=== PATIENT | female | born 1975 | race Caucasian/White ===

== ENCOUNTER 2016-12-26 15:41 | Inpatient (IN) | payer BC ==
[2016-12-26 16:24] LABS: #Eosinphils 0.1 thou/uL (0.0-0.7); #Lymphocytes 2.9 thou/uL (1.20-3.40); #Monocytes 0.7 thou/uL (0.11-0.59); #Neutrophils 6.4 thou/uL (1.40-6.50); %Basophils 0.1 % (0.0-1.0); %Eosinophils 1.1 % (0.0-10.0); %Lymphocytes 28.7 % (21.0-51.0); %Monocytes 6.6 % (0.0-10.0); Hematocrit 38.4 % (36.0-47.0); Mean Platelet Volume 8.5 fL (7.4-10.4); White Blood Cell (WBC) Count 10.1 thou/uL (4.8-10.8)
[2016-12-26 16:46] LABS: ALT (SGPT) 20 U/L (8-55); AST (SGOT) 20 U/L (5-34); Alkaline Phosphatase 90 U/L (40-150); Anion Gap 14 mmol/L (10-20); BUN (Urea Nitrogen) 16 mg/dL (7.0-18.7); Bilirubin, Total 0.2 mg/dL (0.2-1.2); Calc. Creatinine Clearance 0 mL/min (70-130); Carbon Dioxide 22 mmol/L (22-29); Chloride 105 mmol/L (98-107); Estimated GFR-MDRD Greater than 90; Globulin 3.3 g/dL (2.4-3.5); Protein, Total 6.3 g/dL (6.0-8.3)
[2016-12-26] MEDS ORDERED: Acetaminophen 500 MG TAB PO PRN (16:46)
[2016-12-26] MEDS ORDERED: Promethazine HCl 25 MG/ML VIAL IM PRN ×2 (16:46→21:54)
[2016-12-26] MEDS ORDERED: Diphenoxylate HCl/Atropine Tablet PO PRN ×2 (16:46→19:15)
[2016-12-26] MEDS ORDERED: Ondansetron HCl/PF 4 MG/2 ML Vial IVP PRN ×3 (16:46→21:54)
[2016-12-26] MEDS ORDERED: LR / Pitocin 40 units/1000 ml 1,000 ML IV PRN (16:46)
[2016-12-26] MEDS ORDERED: Calcium Gluc 4.6 MEQ/10 ML (100 MG/ML) SLOW IVP PRN (16:46)
[2016-12-26] MEDS: Lactated Ringer's 1,000 ML IV SCH (17:00)
[2016-12-26 17:27] LABS: Hematocrit 37.6 % (36.0-47.0); White Blood Cell (WBC) Count 9.4 thou/uL (4.8-10.8)
[2016-12-26] MEDS: Labetalol HCl 100 MG/20 ML VIAL SLOW IVP PRN ×4 (17:30→20:00)
[2016-12-26 18:59] VITALS: BMI 46.2
[2016-12-26] MEDS ORDERED: Penicillin G Potassium 5 MILL.UNITS in Sodium Chloride 0.9% 100 ML IVPB SCH (19:00)
[2016-12-26] MEDS ORDERED: NIFEdipine 10 MG CAP PO SCH (19:00)
[2016-12-26] MEDS ORDERED: Dextrose 50% Abboject 50 ML SYRINGE IVP PRN (19:09)
[2016-12-26] MEDS ORDERED: Dextrose 5% in Water 1,000 ML IV PRN (19:09)
[2016-12-26] MEDS ORDERED: HYDROcodone/Acetaminophen 5/325 mg Tablet PO PRN ×2 (19:15)
[2016-12-26] MEDS ORDERED: Misoprostol 200 MCG TAB PR PRN (19:15)
[2016-12-26] MEDS ORDERED: Magnesium Sulfate 20 GM/WATER 500 ML BAG IVPB SCH (19:15)
[2016-12-26] MEDS ORDERED: Carboprost 250 MCG/ML AMP IM PRN (19:15)
[2016-12-26] MEDS ORDERED: Lidocaine 1% (PF) 30 ML VIAL SC PRN (19:15)
--- NOTE | 2016-12-26 19:20 | PDOC.LDHP ---
Labor and Delivery H&P Chief complaint: other (Elevated BPs) HPI: 41 y/o at 37w0d sent from clinic by Dr. Lundy for elevated BPs. Has chronic HTN that has been controlled on aldomet and labetalol but had severe range BPs in clinic today. Denies ALARCON, vision changes, RUQ pain, VB, LOF, ctx, or decreased FM. ROS neg for HEENT, cv, pulm, gi, gu, neuro, psych, skin, musculoskeletal or constitutional symptoms other than mentioned above. OB History Details: 2 prior SABs Current complications: pregestational diabetes, hypertension Past Medical History: CHTN, T2DM Previous surgical history: none Allergies/Adverse Reactions: Allergies Allergy/AdvReac Type Severity Reaction Status Date / Time No Known Allergies Allergy Unverified 12/26/16 18:49 Social history: none - Physical Exam Abnormal vital signs: Severe range BPs, persistent General: NAD, resting Heart: RRR Lungs: CTAB Abdomen: gravid Extremeties: pitting edema FHT: category 1 Robins contractions every: 6-8 mins - Vaginal Exam cm dilated: 0 Effacement: 0% Station: -3 - Assessment L&D Assessment: medically indicated induction - Plan Plan: admit to L&D, cervical ripening, GBS antibiotic prophylaxis, informed consent obtained, magnesium for seizure prophylaxis, anesthesia consult for pain management -: Given 1 dose Nifedipin 10mg PO in triage. Labetalol and hydralazine ordered prn for BP control. SSI ordered with q2 hour accuchecks.
[2016-12-26] MEDS: Magnesium Sulfate 20 gm/500 ml 20 GM/500 ML BAG IVPB SCH (20:07)
--- NOTE | 2016-12-26 21:39 | PDOC.LDPN ---
Labor & Delivery Progress Note - Subjective Subjective: comfortable - Objective Abnormal vital signs: Persistent severe range BPs General: NAD, resting Uterine fundus: non tender Dilation: 0 Effacement: 0% Station: -3 FHT: category 1 - Assessment (1) Severe hypertension affecting in third trimester Code(s): O16.3 - UNSPECIFIED MATERNAL HYPERTENSION, THIRD TRIMESTER Current Visit: Yes Status: Acute -: Patient with persistent severe range BPs despite treatment with multiple agents remote from delivery. Because of this, I feel it is best to proceed with delivery. I discussed this with the patient and the plan is to proceed with primary LTCS.
[2016-12-26] MEDS ORDERED: Oxytocin 10 UNITS/ML VIAL ONE (21:45)
[2016-12-26] MEDS ORDERED: Ondansetron HCl/PF 4 MG/2 ML Vial ONE (21:45)
[2016-12-26] MEDS ORDERED: ePHEDrine/0.9% NaCl/PF SYRINGE 50 mg/10 ml ONE (21:45)
[2016-12-26] MEDS ORDERED: Fentanyl 100 MCG/2 ML VIAL ONE (21:46)
[2016-12-26] MEDS ORDERED: Naloxone HCl 0.4 mg/ml Vial IV PRN (21:54)
[2016-12-26] MEDS ORDERED: HYDROmorphone 2 MG/ML VIAL SLOW IVP PRN (21:54)
[2016-12-26] MEDS ORDERED: Naloxone HCl 0.4 mg/ml Vial IVP PRN ×2 (21:54)
[2016-12-26] MEDS ORDERED: diphenhydrAMINE HCl 50 MG/ML 1 ML VIAL IVP PRN (21:54)
[2016-12-26] MEDS ORDERED: Meperidine HCl/PF 25 MG/ML VIAL SLOW IVP PRN (21:54)
[2016-12-26] MEDS ORDERED: Ketorolac Tromethamine 30 MG/ML VIAL IVP PRN (21:54)
[2016-12-26] MEDS ORDERED: Promethazine HCl 25 MG SUPP PR PRN (21:54)
[2016-12-26] MEDS ORDERED: Eucerin (Mineral Oil/Petrolatum,White) 30 gm Jar TOP PRN (21:54)
[2016-12-26] MEDS ORDERED: Communication Order-Pharmacy FS SCH (22:00)
[2016-12-26] MEDS ORDERED: Bicitra 30 ML UDCUP PO SCH (22:00)
[2016-12-26] MEDS ORDERED: Ketorolac Tromethamine 30 MG/ML VIAL IVP SCH (22:00)
[2016-12-26] MEDS ORDERED: Ketorolac Tromethamine 30 MG/ML VIAL ONE (22:39)
[2016-12-26] MEDS ORDERED: Simethicone Chewable 80 MG TAB PO PRN (23:15)
[2016-12-26] MEDS ORDERED: Lanolin Ointment 7 GM TUBE TOP PRN (23:15)
[2016-12-26] MEDS ORDERED: Varicella virus, LIVE 0.5 ML VIAL SC ONE (23:15)
[2016-12-26] MEDS ORDERED: Adacel (T-DAP) 0.5 ML VIAL IM ONE (23:15)
[2016-12-26] MEDS ORDERED: LR w/ Pitocin 40 units/1000 ML BAG IV SCH (23:15)
[2016-12-26] MEDS ORDERED: Measles/Mumps/Rubella 10 MCG/0.5 ML VIAL SC ONE (23:15)
--- NOTE | 2016-12-26 23:43 | PDOC.OPDEL ---
OB Operative/Delivery Note Delivery Dr/Surgeon: Eliazbeth Small MD Assist: Luca Mcgill Pre-Delivery Diagnosis: other (Severe blood pressures uncontrolled, remote from delivery) Weeks gestation: 37 Anesthesia: spinal - Findings A Sex: female ("Roberto") Weight: 6 lb 12.256 oz - 5 min: 8 - 10 min: 9 - Additional Findings/Plan Placenta delivered: spontaneous findings: low transverse hysterotomy without extension Estimated blood loss: 800 Post delivery plan: recovery in LICU
--- NOTE | 2016-12-26 23:57 | OP ---
DATE OF PROCEDURE: 12/26/2016 PREOPERATIVE DIAGNOSES: 1. Uncontrolled chronic hypertension with superimposed severe induced hypertension, remote from delivery. 2. A 37-week intrauterine . 3. Type 2 Diabetes Mellitus POSTPROCEDURE DIAGNOSES: 1. Uncontrolled chronic hypertension with superimposed severe induced hypertension, remote from delivery. 2. A 37-week intrauterine . 3. Type 2 Diabetes Mellitus PROCEDURE PERFORMED: Primary low transverse . SURGEON: Elizabeth Small M.D. [employer]VE[employer]MENT B[employer]ING ASSOCIATE: Luca Mcgill, [employer] Worker. ANESTHESIA: Spinal. COMPLICATIONS: None. ESTIMATED BLOOD LOSS: 800 mL INDICATIONS: The patient was admitted for persistent severe range blood pressures at term. Her blood pressures could not be controlled with multiple antihypertensive agents and was remote from delivery. The decision was made to proceed with primary for blood pressure control. FINDINGS: Normal uterus, tubes, ovaries. The uterus had a small 1 cm subserosal fibroid vigorous female in cephalic presentation. Apgars 8 and 9, weight 6 pounds, 12 ounces. DESCRIPTION OF PROCEDURE: The patient was taken to the operating room where spinal anesthesia was obtained without difficulty. She was prepared and draped in normal sterile fashion in the dorsal supine position with a leftward tilt. A Pfannenstiel skin incision was made with scalpel and carried down to the underlying layer of fascia. The fascia was incised in the midline and extended laterally with Dominguez scissors. The fascia was tented off the rectus muscles with Amadeo clamps and the rectus muscles were dissected off sharply. The rectus muscles were in the midline and the peritoneum was entered sharply and extended laterally. An Thony O retractor was placed in the abdomen and the lower uterine segment was incised in a transverse fashion with the scalpel. The incision was extended in a cephalocaudal direction and the infant's head was delivered atraumatically. The nose and mouth were suctioned with bulb suction and the cord was clamped and cut. The infant was handed off to the waiting NICU team. The placenta was delivered manually and uterus was cleared of all clots and debris. Uterine incision was repaired in a running locked fashion with a #1 Monocryl in two layers with good hemostasis. The abdomen was irrigated and the Thony retractor was removed. The fascia was repaired in a running fashion with 0 PDS. The subcuticular tissue was reapproximated with plain gut and the skin was sewn with 4-0 Monocryl. Patient tolerated the procedure well. Sponge, lap, and needle counts were correct x2. The patient was taken to recovery room in stable condition. KEITH
[2016-12-27] MEDS: Misoprostol 100 MCG TAB VAG SCH ×6 (00:08→20:54)
[2016-12-27] MEDS: Penicillin G 2.5 MILL.units 2.5 MILL.UNITS in Premix Bag 1 BAG IVPB SCH ×5 (00:08→19:03)
[2016-12-27] MEDS: Labetalol HCl 100 MG/20 ML VIAL SLOW IVP PRN ×6 (00:42→19:40)
[2016-12-27] MEDS: Lactated Ringer's 1,000 ML IV SCH ×3 (03:05→19:46)
[2016-12-27] MEDS: Magnesium Sulfate 20 gm/500 ml 20 GM/500 ML BAG IVPB SCH ×2 (04:37→14:50)
[2016-12-27 04:55] LABS: Hematocrit 38.1 % (36.0-47.0); Mean Platelet Volume 8.5 fL (7.4-10.4); Red Blood Cell (RBC) Count 4.33 mill/uL (4.20-5.40); White Blood Cell (WBC) Count 14.3 thou/uL (4.8-10.8)
[2016-12-27] MEDS: D5 LR 500 ML IV SCH ×2 (06:45→15:40)
--- NOTE | 2016-12-27 07:17 | PDOC.PP ---
Post Progress Note Post Day #: 1 -: Doing well. Not yet ambulated. Low BS overnight. PO intake tolerated: yes (clear liquids) Ambulation: no Vital Signs (12 hours) Temp Pulse Resp BP BP 12/27/16 03:06 85 163/77 H 12/27/16 01:21 85 163/77 H 12/27/16 00:42 94 12/26/16 23:15 97.9 F 94 18 159/76 H 12/26/16 21:27 99 12/26/16 20:17 99 12/26/16 20:00 99 12/26/16 19:38 99 12/26/16 19:33 98.6 F 99 18 12/26/16 19:20 90 Weight Weight 278 lb - Physical Examination General: NAD Abdominal: lochia (normal), no distention, appropriately TTP Fundus firm & at: U-3 Skin: no rash Neurological: no gross focal deficits Psychiatric: A&Ox3 Result Diagrams: 12/27/16 04:40 12/26/16 16:14 Additional Labs: Post Labs Blood Type A POSITIVE 12/26/16 17:00 Hep Bs Antigen Non-Reactive S/CO (NonReactive) 12/26/16 17:00 Accuchecks 12/27/16 12/27/16 12/27/16 06:39 04:40 02:06 POC Glucose 49 L* 54 L* 73 12/26/16 12/26/16 12/26/16 23:59 21:31 19:43 POC Glucose 86 69 L 59 L* 12/26/16 18:19 POC Glucose 82 (1) Severe hypertension affecting in third trimester Code(s): O16.3 - UNSPECIFIED MATERNAL HYPERTENSION, THIRD TRIMESTER Status: Acute (2) delivery due to maternal disorder, delivered, curr hospitaliz Code(s): O99.89 - OTH DISEASES AND CONDITIONS COMPL PREG/CHLDBRTH; O82 - ENCOUNTER FOR DELIVERY WITHOUT INDICATION Status: Acute (3) Type 2 diabetes mellitus Status: Chronic - Assessment/Plan Doing well PPD 1. Since she has had minimal CLD (but tolerating so far), I started D5LR for low BS until she is tolerating more PO. Will continue to monitor. BPs have improved since delivery. Continue magnesium. Will restart home BP medications.
[2016-12-27] MEDS ORDERED: Insulin Detemir 100 UNITS/ML 45 UNITS in Pre-Filled Syringe 1 EACH SC SCH (09:00)
[2016-12-27] MEDS: Labetalol HCl 100 MG TAB PO SCH ×2 (10:25→20:37)
[2016-12-27] MEDS: Ferrous Sulfate 325 MG TAB PO SCH (10:34)
[2016-12-27] MEDS: Docusate (Surfak) 240 MG CAP PO SCH ×2 (10:34→20:36)
[2016-12-27] MEDS ORDERED: Ketorolac Tromethamine 30 MG/ML VIAL ONE (13:04)
[2016-12-27] MEDS: TOUJEO SC SCH (20:49)
[2016-12-27] MEDS ORDERED: HYDROcodone/Acetaminophen 5/325 mg Tablet PO PRN (23:59)
[2016-12-28] MEDS: HYDROcodone/Acetaminophen 5/325 mg Tablet PO PRN ×2 (00:07→09:12)
[2016-12-28] MEDS: Labetalol HCl 100 MG/20 ML VIAL SLOW IVP PRN ×4 (07:55→19:24)
[2016-12-28] MEDS ORDERED: Furosemide 40 MG/4 ML VIAL SLOW IVP SCH (08:45)
[2016-12-28] MEDS ORDERED: TOUJEO SC SCH (09:00)
[2016-12-28] MEDS: NIFEdipine XL 60 MG TAB PO SCH (09:11)
[2016-12-28] MEDS: TOUJEO SC SCH ×2 (09:13→21:15)
[2016-12-28] MEDS: Docusate (Surfak) 240 MG CAP PO SCH ×2 (09:13→21:13)
[2016-12-28] MEDS: Ferrous Sulfate 325 MG TAB PO SCH (09:13)
--- NOTE | 2016-12-28 12:29 | PRG ---
DATE OF SERVICE: 12/28/2016 SUBJECTIVE: Patient is a 41-year-old female now postoperative day #2, status post a primary C-secti on for chronic hypertension and superimposed preeclampsia with difficult to control severe range blo od pressures. The patient has been off magnesium since about 10:00 last night. She has required mu ltiple IV medications in the last 24 hours and most recently has required medication as early as thi s morning. The patient has been on labetalol 200 mg twice a day and methyldopa 500 mg after review of the blood pressures the last 24 hours with blood pressures as high as 200 systolic and 90s diasto lic. I have opted to rearrange her medications by discontinuing her methyldopa and her labetalol p. o. and starting her on Procardia-XL 60 mg. I have also given her dose of 40 mg of Lasix this mornin g and she has received 2 doses of IV hydralazine 10 mg each. I verified her blood pressures with an upper arm cuff, wrapping at least about one half times around her arm. This blood pressure cuff de monstrated pressures in the 160s to 170s. REVIEW OF SYSTEMS: Patient denies headaches. She denies any chest pain. She denies any vision oracio nges. PHYSICAL EXAMINATION: VITAL SIGNS: Blood pressure currently is 175/75, pulse of 110, temperature 99.0, respiratory rate 2 0. GENERAL: She appears to be in no acute distress. She is alert and oriented, and cooperative and pl easant to interact with. HEENT: Normocephalic, atraumatic. ABDOMEN: Obese and difficult to assess. Her incision is clean, dry, and intact with eric. EXTREMITIES: No induration or erythema. LABORATORY DATA: Blood sugars fasting this morning is 68, a postprandial blood sugar yesterday was 143. ASSESSMENT AND PLAN: The patient is a 41-year-old female with insulin-dependent diabetes and chroni c hypertension, postop day 2 status post a primary for uncontrolled blood pressures. She is status post magnesium. Blood pressures continue to be in the severe range. We have made some ch anges to her medications and hopefully will have a positive affect. In the meantime, we will contin ue to treat with IV hydralazine and IV labetalol as needed to bring her pressures down. If this is unsuccessful, we will need to consider placing the patient on a drip in the ICU.
[2016-12-28] MEDS: Labetalol HCl 100 MG TAB PO SCH (21:13)
[2016-12-28] MEDS: Insulin Regular 300 UNITS/3 ML VIAL SC PRN (22:12)
--- NOTE | 2016-12-29 08:41 | PDOC.PP ---
Post Progress Note Post Day #: 3 -: Feels better today. No IV anti-HTN overnight. Denies preE sx. Breast feedin PO intake tolerated: yes Flatus: no Ambulation: yes Vital Signs (12 hours) Temp Pulse Resp BP 12/29/16 08:00 98.4 F 106 H 20 12/29/16 04:00 98.2 F 110 H 22 H 12/29/16 00:00 98.2 F 110 H 22 H 12/28/16 21:13 121 H 167/81 H Weight Weight 278 lb - Physical Examination General: NAD Cardiovascular: RRR Respiratory: clear to ausculation bilateral Abdominal: no distention, appropriately TTP Deviation from normal: incision c/d/i with dermabond Fundus firm & at: below umbilicus Extremities: negative homans (B) (2-3+ edema, DTRs 2+) Skin: no rash Neurological: no gross focal deficits Psychiatric: normal affect Result Diagrams: 12/27/16 04:40 12/26/16 16:14 Additional Labs: Post Labs Blood Type A POSITIVE 12/26/16 17:00 Hep Bs Antigen Non-Reactive S/CO (NonReactive) 12/26/16 17:00 (1) delivery due to maternal disorder, delivered, curr hospitaliz Code(s): O99.89 - OTH DISEASES AND CONDITIONS COMPL PREG/CHLDBRTH; O82 - ENCOUNTER FOR DELIVERY WITHOUT INDICATION Status: Acute (2) Severe hypertension affecting in third trimester Code(s): O16.3 - UNSPECIFIED MATERNAL HYPERTENSION, THIRD TRIMESTER Status: Acute (3) Type 2 diabetes mellitus Status: Chronic - Assessment/Plan HTN has been improved overnight with PO labetalol and procardia regimen. She did not require additional IV anti-HTN meds. UOP good and labs stable. BG has been controlled with Troujeo 20 units BID and PRN humalog. Plan to transfer to PP floor this AM and need to monitor to assure normal - mild range BPs > 24 hours with PO meds.
[2016-12-29] MEDS: NIFEdipine XL 60 MG TAB PO SCH (08:44)
[2016-12-29] MEDS: Labetalol HCl 100 MG TAB PO SCH ×2 (08:45→21:38)
[2016-12-29] MEDS: Docusate (Surfak) 240 MG CAP PO SCH ×2 (08:45→21:38)
[2016-12-29] MEDS: TOUJEO SC SCH ×3 (08:45→21:47)
[2016-12-29] MEDS ORDERED: Acetaminophen 325 MG TAB PO PRN (10:05)
[2016-12-29] MEDS ORDERED: diphenhydrAMINE HCl 25 MG CAP PO PRN (10:05)
[2016-12-29] MEDS ORDERED: Labetalol HCl 100 MG/20 ML VIAL SLOW IVP PRN (10:05)
[2016-12-29] MEDS ORDERED: Prenatal Vitamin 1 TAB PO SCH (10:15)
[2016-12-29] MEDS ORDERED: Enoxaparin Sodium 40 MG/0.4 ML SYRINGE SC SCH (10:15)
[2016-12-29] MEDS: Penicillin G 2.5 MILL.units 2.5 MILL.UNITS in Premix Bag 1 BAG IVPB SCH ×2 (11:12→11:13)
[2016-12-29] MEDS: D5 LR 500 ML IV SCH (11:13)
[2016-12-29] MEDS: Misoprostol 100 MCG TAB VAG SCH (11:14)
[2016-12-29] MEDS: Lactated Ringer's 1,000 ML IV SCH (11:14)
[2016-12-29] MEDS: Ferrous Sulfate 325 MG TAB PO SCH (11:14)
[2016-12-29] MEDS: Ibuprofen 800 MG TAB PO SCH ×2 (13:49→22:53)
[2016-12-29] MEDS: Insulin Regular 300 UNITS/3 ML VIAL SC PRN (17:41)
[2016-12-30 05:47] LABS: #Eosinphils 0.4 thou/uL (0.0-0.7); #Lymphocytes 2.1 thou/uL (1.20-3.40); #Monocytes 0.7 thou/uL (0.11-0.59); #Neutrophils 4.6 thou/uL (1.40-6.50); %Basophils 0.5 % (0.0-1.0); %Eosinophils 5.4 % (0.0-10.0); %Monocytes 8.9 % (0.0-10.0); Hematocrit 38.8 % (36.0-47.0); Mean Platelet Volume 8.2 fL (7.4-10.4); Red Blood Cell (RBC) Count 4.33 mill/uL (4.20-5.40); White Blood Cell (WBC) Count 7.9 thou/uL (4.8-10.8)
[2016-12-30 06:07] LABS: ALT (SGPT) 34 U/L (8-55); AST (SGOT) 30 U/L (5-34); Alkaline Phosphatase 64 U/L (40-150); Anion Gap 13 mmol/L (10-20); BUN (Urea Nitrogen) 10 mg/dL (7.0-18.7); Bilirubin, Total 0.4 mg/dL (0.2-1.2); Calc. Creatinine Clearance 252 mL/min (70-130); Calcium 8.4 mg/dL (7.8-10.44); Carbon Dioxide 23 mmol/L (22-29); Chloride 105 mmol/L (98-107); Estimated GFR-MDRD Greater than 90; Globulin 3.2 g/dL (2.4-3.5); Protein, Total 6.1 g/dL (6.0-8.3)
[2016-12-30] MEDS: Ibuprofen 800 MG TAB PO SCH ×2 (06:32→14:15)
[2016-12-30] MEDS: NIFEdipine XL 60 MG TAB PO SCH (08:24)
[2016-12-30] MEDS: Labetalol HCl 100 MG TAB PO SCH (08:24)
[2016-12-30] MEDS: Docusate (Surfak) 240 MG CAP PO SCH (08:25)
[2016-12-30] MEDS: TOUJEO SC SCH (08:26)
[2016-12-30] MEDS ORDERED: Prenatal Vitamin 1 TAB PO SCH (09:00)
[2016-12-30] MEDS ORDERED: Enoxaparin Sodium 40 MG/0.4 ML SYRINGE SC SCH (09:00)
[2016-12-30] MEDS ORDERED: Labetalol HCl 100 MG TAB PO SCH ×2 (09:45→21:00)
[2016-12-30 12:14] VITALS: BP 141/69; TEMP 98.5
--- NOTE | 2016-12-30 13:02 | PDOC.PP ---
Post Progress Note Post Day #: 4 -: Doing well. No IV meds needed. BG contolled and BP improved with regimen. PO intake tolerated: yes Flatus: yes Ambulation: yes Vital Signs (12 hours) Temp Pulse Resp BP 12/30/16 12:13 98.5 F 91 18 141/69 H 12/30/16 10:01 101 H 12/30/16 08:24 101 H 12/30/16 08:00 98.2 F 101 H 18 12/30/16 03:46 101 H 148/70 H Weight Weight 278 lb - Physical Examination General: NAD Cardiovascular: no m/r/g, RRR Respiratory: clear to ausculation bilateral Abdominal: no distention, appropriately TTP Deviation from normal: incision c/d/i with dermabond, bruising noted along incision Fundus firm & at: below umbilius Extremities: negative homans (B) Skin: no rash Neurological: no gross focal deficits Psychiatric: A&Ox3 Result Diagrams: 12/30/16 05:24 12/30/16 05:24 Additional Labs: Post Labs Blood Type A POSITIVE 12/26/16 17:00 Hep Bs Antigen Non-Reactive S/CO (NonReactive) 12/26/16 17:00 (1) delivery due to maternal disorder, delivered, curr hospitaliz Code(s): O99.89 - OTH DISEASES AND CONDITIONS COMPL PREG/CHLDBRTH; O82 - ENCOUNTER FOR DELIVERY WITHOUT INDICATION Status: Acute (2) Severe hypertension affecting in third trimester Code(s): O16.3 - UNSPECIFIED MATERNAL HYPERTENSION, THIRD TRIMESTER Status: Acute (3) Type 2 diabetes mellitus Status: Chronic - Assessment/Plan BP controlled with Procardia XL 60 mg QD and Labetalol 300 mg BID. BG controlled with Toujeo 20 units BID and SSI. She has met all post operative requirements for discharge. D/C home with f/u in 1 week for incision check and BP check. Reviewed importance of continued compliance and medications post .
[2016-12-30] MEDS ORDERED: HYDROcodone/Acetaminophen 10/325 mg Tablet PO SCH (18:00)
== END 2016-12-30 17:15 | disposition home or self-care (01) | DRG 765 ==
LOC: L&D/OP 15:41 → L&D 16:54 → 3SW 12-29 09:46
PROVIDERS: ADMIT Obstetrics & Gynecology; ATTEND Obstetrics & Gynecology
PROC: 10D00Z1 Extraction of Products of Conception, Low, Open Approach (ICD-10-PCS; principal; 2016-12-26)
DX: O10.02 Pre-existing essential hypertension complicating childbirth (principal); O24.12 Pre-existing type 2 diabetes mellitus, in childbirth; O13.4 Gestational [pregnancy-induced] hypertension without significant proteinuria, complicating childbirth; Z37.0 Single live birth; Z3A.37 37 weeks gestation of pregnancy; E11.9 Type 2 diabetes mellitus without complications; Z79.4 Long term (current) use of insulin; O99.824 Streptococcus B carrier state complicating childbirth
CPT/HCPCS: 36415; 36416; 80053; 81003; 82570; 84156; 85025; 85027; 86780; 86850; 86900; 86901; 87340; A4216; J0360; J1650; J1815; J1885; J1940; J2274; J2405; J2540; J2590; J3010; J3475; J7050